=== PATIENT | male | born 1960 | race Two or more races ===

== ENCOUNTER 2023-04-18 09:47 | Inpatient (IN) | payer SELFPAY ==
[~2023-04-18] VITALS: Ht 147 cm; Wt 79.0 kg
[2023-04-19] MEDS ORDERED: DIGOXIN 0.25 MG TAB PO SCH (10:00)
== END 2023-04-18 12:49 | disposition home or self-care (01) | DRG 554 ==
LOC: EAST 09:47
PROVIDERS: ADMIT Internal Medicine Geriatric Medicine; ATTEND Internal Medicine Geriatric Medicine
DX: M15.9 Polyosteoarthritis, unspecified (principal)
CPT/HCPCS: 36415; 82565; G0378